=== PATIENT | female | born 2000 | race African-American/Black ===

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

== ENCOUNTER 2021-08-29 10:49 | Emergency (ER) | payer MEDICAID, OTHER ==
[~2021-08-29] VITALS: Ht 167.6 cm; Wt 70.8 kg
[2021-08-29 10:51] VITALS: BP 101/61
[2021-08-29] MEDS ORDERED: CEPH-509 PO (11:15)
[2021-08-29] MEDS ORDERED: IBUP800T27 PO (11:15)
[2021-08-29] MEDS ORDERED: IBUPROFEN 800 MG TAB PO ONE (11:15)
== END 2021-08-29 11:22 | disposition home or self-care (01) ==
LOC: ER 10:49
DX: S70.362A Insect bite (nonvenomous), left thigh, initial encounter (principal); L08.9 Local infection of the skin and subcutaneous tissue, unspecified; F12.10 Cannabis abuse, uncomplicated; W57.XXXA Bitten or stung by nonvenomous insect and other nonvenomous arthropods, initial encounter; Y93.89 Activity, other specified; Y92.89 Other specified places as the place of occurrence of the external cause; Y99.8 Other external cause status

== ENCOUNTER 2021-08-31 13:57 | Emergency (ER) | payer OTHER ==
[~2021-08-31] VITALS: Ht 167.6 cm; Wt 71.0 kg
[~2021-08-31 13:57] MED LIST: CEPH-509 PO; IBUP800T27 PO
[2021-08-31] MEDS ORDERED: LIDOCAINE 1% HCL (LOCAL ANESTH.) INJ 20ML MDV ONE (14:40)
[2021-08-31] MEDS ORDERED: LIDOCAINE 1% HCL (LOCAL ANESTH.) INJ 20ML MDV IJ ONE (14:45)
[2021-08-31] MEDS ORDERED: cefTRIAXone SOD 1,000 MG VL IM ONE (15:15)
[2021-08-31 15:24] VITALS: BP 122/77
== END 2021-08-31 15:38 | disposition home or self-care (01) ==
LOC: ER 13:57
DX: L02.416 Cutaneous abscess of left lower limb (principal); F12.10 Cannabis abuse, uncomplicated
CPT/HCPCS: 10060; 96372; 99283; J0696; J2001

== ENCOUNTER 2021-09-02 10:40 | Emergency (ER) | payer OTHER ==
[~2021-09-02] VITALS: Ht 167.6 cm; Wt 70.8 kg
[2021-09-02 14:15] VITALS: BP 112/80
== END 2021-09-02 14:22 | disposition home or self-care (01) ==
LOC: ER 10:40
DX: L02.416 Cutaneous abscess of left lower limb (principal); F12.10 Cannabis abuse, uncomplicated; Z48.817 Encounter for surgical aftercare following surgery on the skin and subcutaneous tissue